=== PATIENT | male | born 1960 | race Caucasian/White ===

== ENCOUNTER 2019-08-12 20:29 | Emergency (ER) | payer OTHER ==
[~2019-08-12] VITALS: Ht 180.3 cm; Wt 77.1 kg
== END 2019-08-12 22:15 | disposition home or self-care (01) ==
LOC: ED 20:29
DX: M25.471 Effusion, right ankle (principal); X50.1XXA Overexertion from prolonged static or awkward postures, initial encounter; Y93.89 Activity, other specified; Y92.89 Other specified places as the place of occurrence of the external cause; Y99.9 Unspecified external cause status